=== PATIENT | female | born 1975 | race Caucasian/White ===

== ENCOUNTER 2023-04-24 23:48 | Inpatient (IN) | payer MEDICARE ==
[2023-04-25 03:25] VITALS: BMI 35.2
[2023-04-25] MEDS ORDERED: Acetaminophen 325 MG TAB PO PRN (03:42)
[2023-04-25] MEDS ORDERED: Acetaminophen 650 MG Suppository PR PRN (03:42)
[2023-04-25] MEDS ORDERED: Promethazine HCl 12.5 MG in Sodium Chloride 0.9% 50 ML IVPB PRN (03:44)
[2023-04-25] MEDS ORDERED: Pantoprazole 40 MG VIAL IVP SCH (03:45)
[2023-04-25] MEDS: Sodium Chloride 0.9% 1,000 ML IV SCH ×3 (03:57→15:15)
[2023-04-25] MEDS: Morphine 4 MG/ML VIAL SLOW IVP PRN ×2 (03:57→08:30)
[2023-04-25 04:04] LABS: Anion Gap 19 mmol/L (10-20); BUN (Urea Nitrogen) 14 mg/dL (7.0-18.7); Calc. Creatinine Clearance 114 mL/min (70-130); Calcium 10.6 mg/dL (7.8-10.44); Carbon Dioxide 22 mmol/L (22-29); Chloride 103 mmol/L (98-107); Estimated GFR 70; Glucose 141 mg/dL (70-105); Potassium 4.5 mmol/L (3.5-5.1); Sodium 139 mmol/L (136-145)
[2023-04-25 04:16] LABS: #Basophils 0.1 10x3/uL (0.0-0.2); #Eosinphils 0.3 10x3/uL (0.0-0.5); #Monocytes 0.7 10x3/uL (0.0-1.1); #Neutrophils 9.7 10x3/uL (1.5-8.4); %Basophils 0.6 % (0.0-2.0); %Eosinophils 2.1 % (0.0-6.0); %Lymphocytes 24.2 % (18.0-47.0); %Neutrophils 67.4 % (40.0-75.0); Hematocrit 38.3 % (34.9-44.5); Mean Corpuscular HGB CONC 33.9 g/dL (32.0-36.0); Mean Corpuscular Hemoglobin 30.5 pg (27.0-33.0); Mean Corpuscular Volume 89.9 fl (81.6-98.3); Mean Platelet Volume 11.5 fl (7.4-10.4); Platelet Count 266 10x3/uL (150-450); RBC Distribution Width 13.1 % (11.5-14.5); Red Blood Cell (RBC) Count 4.26 10x6/uL (3.90-5.03); White Blood Cell (WBC) Count 14.3 10x3/uL (3.5-10.5)
[2023-04-25 06:27] LABS: RBC Morph Comment Within Normal Limits
[2023-04-25 06:30] LABS: Platelet Clumps SLIGHT
[2023-04-25 06:31] LABS: Platelet Adequacy Comment PLT clumps seen-LOW
[2023-04-25 08:45] LABS: ALT (SGPT) 99 U/L (8-55); AST (SGOT) 108 U/L (5-34); Albumin 4.4 g/dL (3.5-5.0); Alkaline Phosphatase 167 U/L (40-110); Bilirubin, Direct 0.2 mg/dL (0.1-0.3); Bilirubin, Total 0.6 mg/dL (0.2-1.2); Protein, Total 7.4 g/dL (6.0-8.3)
[2023-04-25] MEDS ORDERED: diphenhydrAMINE 25 MG CAP PO SCH (09:00)
[2023-04-25] MEDS ORDERED: diphenhydrAMINE 25 MG CAP PO PRN (12:21)
[2023-04-25] MEDS ORDERED: HYDROmorphone 0.5 MG/0.5 ML SYRINGE SLOW IVP SCH (13:00)
[2023-04-25] MEDS: tiZANidine HCl 4 MG TAB PO SCH ×2 (15:40→21:24)
[2023-04-25] MEDS: hydrALAZINE 25 MG TAB PO SCH (21:23)
[2023-04-25] MEDS: Zolpidem Tartrate 5 MG TAB PO SCH (21:24)
[2023-04-26] MEDS: Sodium Chloride 0.9% 1,000 ML IV SCH ×4 (02:47→21:57)
[2023-04-26 04:53] LABS: #Basophils 0.1 10x3/uL (0.0-0.2); #Eosinphils 0.1 10x3/uL (0.0-0.5); #Monocytes 0.4 10x3/uL (0.0-1.1); #Neutrophils 4.1 10x3/uL (1.5-8.4); %Basophils 0.9 % (0.0-2.0); %Eosinophils 2.1 % (0.0-6.0); %Lymphocytes 29.7 % (18.0-47.0); %Monocytes 5.8 % (0.0-10.0); %Neutrophils 61.1 % (40.0-75.0); Hematocrit 38.4 % (34.9-44.5); Hemoglobin 12.9 g/dL (12.0-15.5); Mean Corpuscular HGB CONC 33.6 g/dL (32.0-36.0); Mean Corpuscular Hemoglobin 30.9 pg (27.0-33.0); Mean Corpuscular Volume 91.9 fl (81.6-98.3); Mean Platelet Volume 10.5 fl (7.4-10.4); Platelet Count 276 10x3/uL (150-450); RBC Distribution Width 13.1 % (11.5-14.5); Red Blood Cell (RBC) Count 4.18 10x6/uL (3.90-5.03); White Blood Cell (WBC) Count 6.7 10x3/uL (3.5-10.5)
[2023-04-26 05:00] LABS: Anion Gap 17 mmol/L (10-20); BUN (Urea Nitrogen) 9 mg/dL (7.0-18.7); Calc. Creatinine Clearance 112 mL/min (70-130); Calcium 9.7 mg/dL (7.8-10.44); Carbon Dioxide 23 mmol/L (22-29); Chloride 104 mmol/L (98-107); Estimated GFR 68; Glucose 127 mg/dL (70-105); Potassium 3.9 mmol/L (3.5-5.1); Sodium 140 mmol/L (136-145)
[2023-04-26 05:01] LABS: ALT (SGPT) 158 U/L (8-55); AST (SGOT) 109 U/L (5-34); Albumin 4.3 g/dL (3.5-5.0); Alkaline Phosphatase 177 U/L (40-110); Bilirubin, Direct 0.3 mg/dL (0.1-0.3); Bilirubin, Total 0.8 mg/dL (0.2-1.2); Protein, Total 7.2 g/dL (6.0-8.3)
[2023-04-26] MEDS: fentaNYL 50 mcg/mL 1 mL Vial SLOW IVP PRN ×2 (06:11→14:03)
[2023-04-26] MEDS: tiZANidine HCl 4 MG TAB PO SCH ×3 (09:00→21:57)
[2023-04-26] MEDS: hydrALAZINE 25 MG TAB PO SCH ×2 (09:01→13:55)
[2023-04-26] MEDS: Pantoprazole 40 MG VIAL IVP SCH (09:01)
[2023-04-26] MEDS: FLUoxetine HCl 20 MG CAP PO SCH (09:02)
[2023-04-26] MEDS ORDERED: fentaNYL 50 mcg/mL 1 mL Vial SLOW IVP PRN (15:03)
[2023-04-26] MEDS ORDERED: Lactated Ringer's 1,000 ML IV SCH (16:45)
[2023-04-26] MEDS: Zolpidem Tartrate 5 MG TAB PO SCH (21:57)
[2023-04-27] MEDS: Sodium Chloride 0.9% 1,000 ML IV SCH ×2 (06:13→09:09)
[2023-04-27] MEDS ORDERED: Sodium Chloride 0.9% 1,000 ML IV SCH (08:56)
[2023-04-27] MEDS: FLUoxetine HCl 20 MG CAP PO SCH (09:07)
[2023-04-27] MEDS: tiZANidine HCl 4 MG TAB PO SCH (09:10)
[2023-04-27] MEDS: Pantoprazole 40 MG VIAL IVP SCH ×2 (09:10→09:11)
[2023-04-27 16:07] VITALS: BP 166/96; TEMP 99.4
== END 2023-04-27 16:04 | disposition home or self-care (01) | DRG 440 ==
LOC: CSHTELE 04-25 02:22
PROVIDERS: ADMIT Student in an Organized Health Care Education/Training Program; ATTEND Family Medicine
DX: K85.90 Acute pancreatitis without necrosis or infection, unspecified (principal); E03.9 Hypothyroidism, unspecified; I10 Essential (primary) hypertension; M79.7 Fibromyalgia; R74.01 Elevation of levels of liver transaminase levels; K75.81 Nonalcoholic steatohepatitis (NASH); D73.89 Other diseases of spleen; F41.9 Anxiety disorder, unspecified; F32.A Depression, unspecified; K31.84 Gastroparesis; K64.9 Unspecified hemorrhoids; K76.0 Fatty (change of) liver, not elsewhere classified; Z88.8 Allergy status to other drugs, medicaments and biological substances; Z90.49 Acquired absence of other specified parts of digestive tract; Z98.890 Other specified postprocedural states
CPT/HCPCS: 36415; 36416; 80048; 80076; 84478; 85025; C9113; J1170; J2270; J2550; J3010; J7050; J7120